=== PATIENT | female | born 1935 | race Caucasian/White ===

== ENCOUNTER 2017-02-09 16:25 | Emergency (ER) | payer OTHER, MEDICAID ==
[~2017-02-09] VITALS: Ht 152.4 cm; Wt 45.5 kg
[~2017-02-09 16:25] MED LIST: CIPR500T93 PO; FLAG500T PO
[2017-02-09 16:30] VITALS: BP 141/70; PULSE 74; RESP 15; TEMP 98.4; O2SAT 98
[2017-02-09] MEDS ORDERED: ONDANSETRON HCL 4 MG/2 ML VIAL IVP ONE (18:30)
[2017-02-09] MEDS ORDERED: SODIUM CHLORIDE 0.9% FLUSH 10 ML FLUSH IV FLUSH PRN (18:30)
--- NOTE | 2017-02-09 18:36 | PD ---
HPI Chief Complaint: Altered Mental Status Time Seen by Provider: 18:11 Travel History International Travel<30 days: No Contact w/Intl Traveler<30days: No Traveled to known affect area: No History of Present Illness HPI 81-year-old female who lives alone, here with her daughter for evaluation of not feeling like herself and decreased appetite ever since having a fall in her apartment 2 weeks ago. The patient reports she was turning the corner of a hallway when she fell backwards, striking the back of her head on the ground. She has had posterior head pain, right neck pain, and right shoulder pain since then. She does not believe she passed out. No other injuries. No chest pain. No abdominal pain. No fevers, chills, cough, or recent illness. No urinary symptoms. PFSH Past Medical History Diminished Hearing: No ?: Not Past Surgical History Hysterectomy: Yes Social History Alcohol Use: No Tobacco Use: No Allergies-Medications (Allergen,Severity, Reaction): Coded Allergies: No Known Allergies (Unverified , 02/09/17) Reported Meds & Prescriptions Reported Meds & Active Scripts Active Flagyl (Metronidazole) 500 Mg Tab 500 Mg PO BID 10 Days Cipro (Ciprofloxacin HCl) 500 Mg Tab 500 Mg PO BID 10 Days Review of Systems Except as stated in HPI: all other systems reviewed are Neg Physical Exam Narrative GENERAL: Pleasant, awake, alert, comfortable, no apparent distress, GCS 15. SKIN: Focused skin assessment warm/dry. No lacerations, abrasions, or ecchymosis. HEAD: Atraumatic. Normocephalic. EYES: Pupils equal, round, 3 mm, reactive to light. No scleral icterus. No injection or drainage. ENT: Mucous membranes pink and moist. Bilateral tympanic membranes and external auditory canals are normal. NECK: Trachea midline. No JVD. No midline vertebral step-off or tenderness. CARDIOVASCULAR: Regular rate and rhythm. RESPIRATORY: No accessory muscle use. Clear to auscultation. Breath sounds equal bilaterally. GASTROINTESTINAL: Abdomen soft, non-tender, nondistended. MUSCULOSKELETAL: No obvious deformities. No clubbing. No cyanosis. No edema. NEUROLOGICAL: Awake and alert. No obvious cranial nerve deficits. Motor grossly within normal limits. Normal speech. PSYCHIATRIC: Appropriate mood and affect; insight and judgment normal. Data Data Last Documented VS Vital Signs Date Time Temp Pulse Resp B/P Pulse Ox O2 Delivery O2 Flow Rate FiO2 02/09/17 18:38 97 Room Air 02/09/17 18:33 18 02/09/17 16:30 98.4 74 141/70 Orders Complete Blood Count With Diff (02/09/17 18:24) Comprehensive Metabolic Panel (02/09/17 18:24) Lipase (02/09/17 18:24) Prothrombin Time / Inr (Pt) (02/09/17 18:24) Act Partial Throm Time (Ptt) (02/09/17 18:24) Urinalysis - C+S If Indicated (02/09/17 18:24) Iv Access Insert/Monitor (02/09/17 18:24) Ecg Monitoring (02/09/17 18:24) Oximetry (02/09/17 18:24) Ondansetron Inj (Zofran Inj) (02/09/17 18:30) Sodium Chloride 0.9% Flush (Ns Flush) (02/09/17 18:30) Electrocardiogram (02/09/17 18:24) Ct Brain W/O Iv Contrast(Rout) (02/09/17 ) Ct Cerv Spine W/O Contrast (02/09/17 ) Shoulder, Complete (>2vws) (02/09/17 ) Sodium Chlor 0.9% 1000 Ml Inj (Ns 1000 M (02/09/17 19:45) Labs Laboratory Tests Test 02/09/17 02/09/17 18:45 19:20 White Blood Count 10.6 TH/MM3 Red Blood Count 4.65 MIL/MM3 Hemoglobin 14.6 GM/DL Hematocrit 42.5 % Mean Corpuscular Volume 91.2 FL Mean Corpuscular Hemoglobin 31.5 PG Mean Corpuscular Hemoglobin 34.5 % Concent Red Cell Distribution Width 13.5 % Platelet Count 282 TH/MM3 Mean Platelet Volume 8.7 FL Neutrophils (%) (Auto) 77.7 % Lymphocytes (%) (Auto) 12.4 % Monocytes (%) (Auto) 9.8 % Eosinophils (%) (Auto) 0.0 % Basophils (%) (Auto) 0.1 % Neutrophils # (Auto) 8.2 TH/MM3 Lymphocytes # (Auto) 1.3 TH/MM3 Monocytes # (Auto) 1.0 TH/MM3 Eosinophils # (Auto) 0.0 TH/MM3 Basophils # (Auto) 0.0 TH/MM3 CBC Comment DIFF FINAL Differential Comment Prothrombin Time 10.6 SEC Prothromb Time International 1.0 RATIO Ratio Activated Partial 26.8 SEC Thromboplast Time Sodium Level 128 MEQ/L Potassium Level 3.9 MEQ/L Chloride Level 92 MEQ/L Carbon Dioxide Level 25.4 MEQ/L Anion Gap 11 MEQ/L Blood Urea Nitrogen 15 MG/DL Creatinine 0.88 MG/DL Estimat Glomerular Filtration 61 ML/MIN Rate Random Glucose 90 MG/DL Calcium Level 9.2 MG/DL Total Bilirubin 0.8 MG/DL Aspartate Amino Transf 37 U/L (AST/SGOT) Alanine Aminotransferase 26 U/L (ALT/SGPT) Alkaline Phosphatase 98 U/L Total Protein 8.2 GM/DL Albumin 3.8 GM/DL Lipase 154 U/L Urine Color LIGHT-YELLOW Urine Turbidity CLEAR Urine pH 6.0 Urine Specific [place] 1.007 Urine Protein NEG mg/dL Urine Glucose (UA) NEG mg/dL Urine Ketones 10 mg/dL Urine Occult Blood TRACE Urine Nitrite NEG Urine Bilirubin NEG Urine Urobilinogen LESS THAN 2.0 MG/DL Urine Leukocyte Esterase NEG Urine RBC 1 /hpf Urine WBC LESS THAN 1 /hpf Urine Hyaline Casts 6 /lpf Microscopic Urinalysis Comment CULT NOT INDICATED MDM Medical Decision Making Medical Screen Exam Complete: Yes Emergency Medical Condition: Yes Differential Diagnosis Intracranial trauma, concussion, cervical spine injury, right shoulder contusion with fracture less likely, UTI, dehydration/metabolic abnormality Narrative Course Vital signs reviewed and are essentially within normal limits. CBC is unremarkable. BMP is remarkable for sodium 128, chloride 92, otherwise unremarkable. Lipase is 154. UA shows trace ketones, trace occult blood, not suggestive of UTI. CT head: No bleed or other acute intracranial abnormality. CT cervical spine: CONCLUSION: 1. No fracture or acute appearing malalignment seen of the cervical spine. 2. Severe multilevel degenerative changes as above. 3. Apparent previous left thyroidectomy. Nodular goiter of the right lobe. Please correlate clinically. Outpatient thyroid ultrasound suggested if felt clinically indicated. Right shoulder x-ray: CONCLUSION: Intact right shoulder. The patient and the patient's daughter were made aware of all findings. She was given a liter of normal saline IV because of her hyponatremia. She was provided a copy of her CT cervical spine report showing nodular goiter of the right lobe of her thyroid. Her hyponatremia as well as her CT findings can be further worked up as an outpatient. She is stable for discharge home with outpatient follow-up with her primary care physician this week. She was informed on when to return to the emergency department. She verbalizes understanding and agreement with plan. Diagnosis Primary Impression: Closed head injury Qualified Code: S09.90XA - Closed head injury, initial encounter Additional Impression: Hyponatremia Referrals: Primary Care Physician 3 days Additional Instructions: Follow-up with your primary care physician this week. Return to the emergency department for worsening symptoms or any other concerns. Disposition: 01 DISCHARGE HOME Condition: Stable Agapito Becerril MD Feb 09, 2017 18:35
[2017-02-09 18:38] VITALS: O2SAT 97
[2017-02-09 18:55] LABS: AUTOMATED NEUTROPHIL # 8.2 TH/MM3 (1.8-7.7); BASOPHIL % 0.1 % (0.0-2.0); HEMATOCRIT 42.5 % (35.0-46.0); HEMO FLAGS DIFF FINAL; LYMPH % 12.4 % (9.0-44.0); LYMPHOCYTE # 1.3 TH/MM3 (1.0-4.8); MEAN CELL VOLUME 91.2 FL (80.0-100.0); MEAN CORPUSCULAR HEMOGLOBIN 31.5 PG (27.0-34.0); MEAN CORPUSCULAR HGB CONC 34.5 % (32.0-36.0); MONO % 9.8 % (0.0-8.0); NEUT % 77.7 % (16.0-70.0); PLATELET COUNT 282 TH/MM3 (150-450); RED BLOOD COUNT 4.65 MIL/MM3 (4.00-5.30); RED CELL DISTRIBUTION WIDTH 13.5 % (11.6-17.2); WHITE BLOOD COUNT 10.6 TH/MM3 (4.0-11.0)
--- NOTE | 2017-02-09 19:03 | RADRPT ---
EXAM DATE/TIME: 02/09/2017 18:40 [facility] COMPARISON: No previous studies available for comparison. INDICATIONS : Pain from fall on right side. MEDICAL HISTORY : None. SURGICAL HISTORY : None. ENCOUNTER: Initial ACUITY: 1 day PAIN SCORE: 3/10 LOCATION: Right shoulder. FINDINGS: Multiple view examination of the right shoulder demonstrates no evidence of fracture or dislocation. The glenohumeral and acromioclavicular joints are maintained. There is normal range of motion betwe en internal and external rotation. Bony mineralization is normal. CONCLUSION: Intact right shoulder. Umesh Husain MD on February 09, 2017 at 19:01 Board Certified Radiologist. This report was verified electronically.
--- NOTE | 2017-02-09 19:09 | RADRPT ---
EXAM DATE/TIME: 02/09/2017 18:58 [facility] COMPARISON: No previous studies available for comparison. INDICATIONS : Trauma; fall. Patient hit the right occipital region. RADIATION DOSE: 30.77 CTDIvol (mGy) MEDICAL HISTORY : None SURGICAL HISTORY : Hysterectomy. ENCOUNTER: Initial ACUITY: 1 day PAIN SCALE: 6/10 LOCATION: cranial TECHNIQUE: Multiple contiguous axial images were obtained of the head. Using automated exposure control and adj ustment of the mA and/or kV according to patient size, radiation dose was kept as low as reasonably a chievable to obtain optimal diagnostic quality images. DICOM format image data is available electro nically for review and comparison. FINDINGS: CEREBRUM: The ventricles are normal for age. No evidence of midline shift, mass lesion, hemorrhage or acute in farction. No extra-axial fluid collections are seen. POSTERIOR FOSSA: The cerebellum and brainstem are intact. The 4th ventricle is midline. The cerebellopontine angle i s unremarkable. EXTRACRANIAL: The visualized portion of the orbits is intact. SKULL: The calvaria is intact. No evidence of skull fracture. CONCLUSION: No bleed or other acute intracranial abnormality. Umesh Husain MD on February 09, 2017 at 19:07 Board Certified Radiologist. This report was verified electronically.
[2017-02-09 19:11] LABS: ALT (GPT) 26 U/L (10-53); ANION GAP 11 MEQ/L (5-15); AST (GOT) 37 U/L (15-37); BICARBONATE 25.4 MEQ/L (21.0-32.0); BLOOD UREA NITROGEN 15 MG/DL (7-18); CHLORIDE 92 MEQ/L (98-107); GLOMERULAR FILTRATION RATE 61 ML/MIN (>89); POTASSIUM 3.9 MEQ/L (3.5-5.1); SODIUM (NA) 128 MEQ/L (136-145)
[2017-02-09 19:13] LABS: ALKALINE PHOSPHATASE 98 U/L (45-117); APTT (PATIENT) 26.8 SEC (24.3-30.1); PROTHROMBIN TIME - PATIENT 10.6 SEC (9.8-11.6); TOTAL BILIRUBIN ADULT 0.8 MG/DL (0.2-1.0)
--- NOTE | 2017-02-09 19:20 | RADRPT ---
EXAM DATE/TIME: 02/09/2017 18:58 [facility] COMPARISON: No previous studies available for comparison. INDICATIONS : Trauma; fall. RADIATION DOSE: 8.90 CTDIvol (mGy) MEDICAL HISTORY : None SURGICAL HISTORY : Hysterectomy. ENCOUNTER: Initial ACUITY: 1 day PAIN SCALE: 6/10 LOCATION: neck TECHNIQUE: Volumetric scanning of the cervical spine was performed. Multiplanar reconstructions in the sagittal, coronal and oblique axial planes were performed. Using automated exposure control and adjustment o f the mA and/or kV according to patient size, radiation dose was kept as low as reasonably achievable to obtain optimal diagnostic quality images. DICOM format image data is available electronically f or review and comparison. FINDINGS: A degenerative appearing kyphosis is seen of the cervical spine, centered around C3/C4. No fracture o r subluxation demonstrated. Vertebral bodies have normal height. 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 Similar but slightly milder findings are seen at C3/C4. Heterogeneous enlargement noted of the right lobe of the thyroid gland. 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 CONCLUSION: 1. No fracture or acute appearing malalignment seen of the cervical spine. 2. Severe multilevel degenerative changes as above. 3. Apparent previous left thyroidectomy. Nodular goiter of the right lobe. Please correlate clinicall y. Outpatient thyroid ultrasound suggested if felt clinically indicated. Umesh Husain MD on February 09, 2017 at 19:15 Board Certified Radiologist. This report was verified electronically.
[2017-02-09] MEDS ORDERED: SODIUM CHLOR 0.9% 1000 ML INJ 1,000 ML IV ONE (19:45)
[2017-02-09 20:07] LABS: BLOOD, URINE TRACE (NEG); COMMENT (UR) CULT NOT INDICATED; CULTURE IF INDICATED CULT NOT INDICATED; GLUCOSE,URINE NEG (NEG); HYALINE CAST, URINE 6 /lpf (RARE); KETONE, URINE 10 mg/dL (NEG); NITRITE,URINE NEG (NEG); URINE COLOR LIGHT-YELLOW (YELLW/STRAW)
[2017-02-09 20:37] VITALS: BP 118/63; TEMP 98.2
--- NOTE | 2017-02-10 15:18 | EKG ---
Date Performed: 02/09/2017 Time Performed: 18:52:01 PTAGE: 81 years EKG: Sinus rhythm RIGHT ATRIAL ENLARGEMENT LEFT ATRIAL ENLARGEMENT ABNORMAL ECG NO PREVIOUS TRACING DOCTOR: Eduar Rivers Interpretating Date/Time 02/10/2017 15:17:16
== END 2017-02-09 20:55 | disposition home or self-care (01) ==
LOC: NEPD 16:25
DX: S09.90XA Unspecified injury of head, initial encounter (principal); W19.XXXA Unspecified fall, initial encounter; Y92.039 Unspecified place in apartment as the place of occurrence of the external cause; R53.1 Weakness; E87.1 Hypo-osmolality and hyponatremia
CPT/HCPCS: 70450; 72125; 73030; 80053; 81001; 83690; 85025; 85610; 85730; 93005; 96361; 96374; 99285; J2405; J7030